=== PATIENT | male | born 1985 | race Caucasian/White ===

== ENCOUNTER 2021-11-18 14:18 | Emergency (ER) | payer OTHER, SELFPAY ==
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
--- NOTE | ~2021-11-18 | XR_ITS ---
XR knee LT min 4V 11/18/2021 15:32 INDICATION: Left knee pain PROCEDURE: 6 views of the left knee COMPARISON: No prior studies for comparison. FINDINGS: Fracture, dislocation or subluxation is not identified. The soft tissues appear within norm al limits. No foreign bodies are identified. IMPRESSION: 1: NO ACUTE BONE OR JOINT ABNORMALITY IDENTIFIED. Reviewed, dictated and finalized at location A.
[2021-11-18 14:25] VITALS: BP 132/80; PULSE 86; RESP 16; TEMP 36.7; O2SAT 100
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
== END 2021-11-18 16:05 | disposition home or self-care (01) ==
PROVIDERS: Emergency Provider Nurse Practitioner
DX: S86.912A Strain of unspecified muscle(s) and tendon(s) at lower leg level, left leg, initial encounter (principal); S66.911A Strain of unspecified muscle, fascia and tendon at wrist and hand level, right hand, initial encounter; V49.40XA Driver injured in collision with unspecified motor vehicles in traffic accident, initial encounter; S60.221A Contusion of right hand, initial encounter
CPT/HCPCS: 73110; 73130; 73564; 99213; G0463